=== PATIENT | male | born 1970 | race Caucasian/White ===

== ENCOUNTER 2024-02-07 16:30 | Emergency (ER) | payer OTHER, SELFPAY ==
--- NOTE | 2024-02-07 16:38 | EXP.UTC ---
Discharge Plan Disposition Patient Disposition: Home, Self-Care Condition: Good Prescriptions Prescriptions: New amoxicillin-pot clavulanate 875-125 mg Tablet 1 tab PO Q12H Qty: 20 0RF ketorolac 10 mg tablet 10 mg PO Q8H PRN (Reason: pain) 5 Days Qty: 20 0RF Rx Instructions: IM injection 02/07/24 1710 Referrals Follow up/Referrals: Provider,Referral, MD [Primary Care Provider] - See instructions Clinical Impressions Clinical Impression: Pain, dental Instructions Patient Instructions: DI for Dental Pain Discharge ED Provider: Zahra Owens [facility] [place] HPI General Stated complaint: oral/tooth pain Time Seen by Provider: 02/07/24 17:05 History of Present Illness Provider Complaint: Dental pain X 2 days. Broke tooth off left lower jaw. Has dentist appt Saturday but she suggested he get antibiotics here. Onset (ago): day(s) (2) Location: mouth Relieving factors: none Exacerbating factors: none Associated symptoms: denies other symptoms Treatments prior to arrival: none Related Data Previous Rx's Medication Instructions Recorded amoxicillin 875 mg-potassium 1 tab PO Q12H #20 tabs 02/07/24 clavulanate 125 mg tablet ketorolac 10 mg tablet 10 mg PO Q8H PRN pain 5 days #20 02/07/24 tabs Allergies Allergy/AdvReac Type Severity Reaction Status Date / Time No Known Allergies Allergy Verified 02/07/24 16:56 [facility] Disclaimer: The information contained in this section may have been updated after the patient was seen, as this information can be updated by other users. Medical History (Updated 02/07/24 @ 17:10 by JO ANN Head) No significant past medical history Social History Smoking Status: Current every day smoker alcohol intake: never current occupational status: employed Travel in the last 8 weeks: None ROS Obtained: Yes All systems reviewed & no additional complaints except as documented ENT Ears, Nose, Mouth, and Throat: Reports dental pain Physical Exam General General appearance: alert and in no apparent distress Head Head exam: atraumatic, normocephalic and normal inspection ENT ENT exam: Present normal exam, normal oropharynx, mucous membranes moist, TM's normal bilaterally and normal external ear exam Expanded ENT Exam Teeth exam: Present dental caries, fractured tooth # and gingival swelling Teeth numbered Image: 1. Chest Chest inspection: Present normal inspection and symmetric chest wall rise; Absent tenderness Respiratory Respiratory exam: Present normal lung sounds bilaterally; Absent respiratory distress Cardiovascular Cardiovascular exam: Present regular rate and normal rhythm; Absent JVD Extremities Exam Extremities exam: Present normal inspection, full ROM and normal capillary refill; Absent calf tenderness Neurological Exam Neurological exam: Present alert and oriented X3 Psychiatric Psychiatric exam: Present normal affect and normal mood Skin Skin exam: Present warm, dry, intact and normal color Medical Decision Making Zohaib Inquiry Pt receiving controlled substance: No
[2024-02-07 16:50] VITALS: BP 199/133; PULSE 74; RESP 20; TEMP 36.7; O2SAT 98; BMI 31.3
[2024-02-07] MEDS: TETRACAINE/BENZOCAINE/BUTAMBEN 56 GM SPRAY TP (17:14)
[2024-02-07] MEDS: LIDOCAINE 2% VISCOUS SOL 15ML UDC 15 ML PO (17:14)
[2024-02-07] MEDS: KETOROLAC 60MG/2ML VIAL 60 MG IM (17:14)
[2024-02-07 17:18] VITALS: BP 199/133; PULSE 74; RESP 20; TEMP 36.7; O2SAT 98
== END 2024-02-07 17:24 | disposition home or self-care (01) ==
PROVIDERS: Emergency Provider Physician Assistant
DX: K08.89 Other specified disorders of teeth and supporting structures (principal); F17.210 Nicotine dependence, cigarettes, uncomplicated
CPT/HCPCS: 96372; 99204; 99212; G0463

== ENCOUNTER 2024-05-10 18:43 | Emergency (ER) | payer OTHER, SELFPAY ==
--- NOTE | 2024-05-10 18:55 | ED_ITS ---
Discharge Plan Disposition Patient Disposition: Home, Self-Care Prescriptions Prescriptions: New prednisone 20 mg tablet 40 mg PO DAILY 5 Days Qty: 10 0RF No Action amoxicillin-pot clavulanate 875-125 mg Tablet 1 tab PO Q12H Qty: 20 0RF ketorolac 10 mg tablet 10 mg PO Q8H PRN (Reason: pain) 5 Days Qty: 20 0RF Rx Instructions: IM injection 02/07/24 1710 Referrals Follow up/Referrals: Provider,Referral, MD [Primary Care Provider] - See instructions Activity Restrictions/Add. Instructions Additional Instructions/Restrictions: Call your family doctor to establish care for this visit to the emergency department and schedule follow-up within 48 hours to ensure improvement. If you have any worsening of your condition or any other concerning signs or symptoms, return to the emergency department or your primary care doctor for further evaluation. Clinical Impressions Clinical Impression: Acute viral syndrome Print Language Print Language: Japanese Discharge ED Provider: Jordon German General Adult HPI General Stated complaint: REDMOND, lauryn,SOA Time Seen by Provider: 05/10/24 18:49 History of Present Illness HPI narrative: Please note that above description of symptoms, in this electronic medical record under categorization of recalled from ER triage doctor by RN are reflective of an initial nursing assessment, however, is not reflective of my full history and physical exam that was personally taken and clarified. Consequentially, this preceding description of symptoms, which may include the patient's categorized chief complaint in the EMR, do not reflect my personal clinical impression, and the ultimate description of history of present illness and patient stated complaints should be deferred to this section of the note. Unless stated otherwise or congruent with this section of the note, additional signs, symptoms, or incongruence should be interpreted as inaccurate with my clinical impression. Related Data Previous Rx's ?Medication ?Instructions ?Recorded amoxicillin 875 mg-potassium 1 tab PO Q12H #20 tabs 02/07/24 clavulanate 125 mg tablet ketorolac 10 mg tablet 10 mg PO Q8H PRN pain 5 days #20 02/07/24 tabs prednisone 20 mg tablet 40 mg (2 x 20 mg) PO DAILY 5 days 05/10/24 #10 tabs Allergies Allergy/AdvReac Type Severity Reaction Status Date / Time No Known Allergies Allergy Verified 02/07/24 16:56 [facility] Disclaimer: The information contained in this section may have been updated after the patient was seen, as this information can be updated by other users. Medical History (Updated 05/10/24 @ 19:01 by Jordon German MD) No significant past medical history Social History (Updated 02/07/24 @ 17:10 by JO ANN Head) Smoking Status: Current every day smoker alcohol intake: never current occupational status: employed Travel in the last 8 weeks: None ROS Obtained: Yes All systems reviewed & no additional complaints except as documented Physical Exam General General appearance: alert Head Head exam: atraumatic and normocephalic Eye Eye exam: Present normal appearance, PERRL and EOMI Neck Neck exam: Present normal inspection, full ROM and trachea midline Respiratory Respiratory exam: Absent respiratory distress, wheezes, stridor, accessory muscle use or prolonged expiratory phase Cardiovascular Cardiovascular exam: Present other (Pulses equal symmetric in upper and lower extremities) Abdominal Exam Abdominal exam: Present soft; Absent distention, tenderness or pulsatile mass Extremities Exam Extremities exam: Absent edema Neurological Exam Neurological exam: Present alert, oriented X3 and CN II-XII intact; Absent motor sensory deficit Skin Skin exam: Present warm and dry; Absent diaphoresis or erythema Medical Decision Making Medical Records Medical records reviewed: Yes I reviewed the patient's medical records. Zohaib Inquiry Pt receiving controlled substance: No Zohaib was queried for this patient: No Medical Decision Narrative: This is a 54-year-old male no relevant medical history presenting with congestion. Patient states has been sick for the last 2 days. Sinus congestion, cough when laying down. Denies chest pain, shortness of breath, nausea, vomiting. States he may had been having fevers and chills, unsure, has not taken any objective measurements. States that clear rhinorrhea that is constant causing his throat to feel irritated and cough. When he coughs, nonproductive. Been around multiple sick contacts. History obtained with patient. On arrival, patient is incredibly well-appearing, no acute distress. Speaking full sentences, normotensive, nontachycardic, saturating appropriately on room air. Lungs are clear to auscultation bilaterally anterior and posterior ly. Patient is intermittently sniffling. I feel this is most likely to be COVID-19 given he has numerous sick contacts with COVID-19. Patient is adamantly declining swab at this time. I feel this is clinically appropriate. Patient states that he just wants medicine to make him feel better because he does not come to the doctor often. Decadron given here, prednisone sent to the pharmacy for acute viral syndrome. Because patient at baseline without signs or symptoms of clinical decompensation, deemed appropriate for discharge. I discussed my clinical impression with patient and answered all questions. At this time, the evidence for any other entities in the differential is insufficient to warrant any further testing or ED observation. This was explained as well. Advisory was given that persistent or worsening symptoms require further evaluation. I confirmed the understanding of this discussion. Emergency Care Tech disclaimer Much of this encounter note is an electronic backside grinder spoken language to printed text. Electronic backside grinder of the spoken language may permit errors. Although I have reviewed the note, some errors may still exist. Critical Care Critical Care Time Critical Care Time: No
[2024-05-10 19:22] VITALS: BP 161/95; PULSE 97; RESP 18; TEMP 36.7; O2SAT 98
== END 2024-05-10 19:24 | disposition home or self-care (01) ==
PROVIDERS: Emergency Provider Emergency Medicine
DX: R05.9 Cough, unspecified (principal); R51.9 Headache, unspecified; J06.9 Acute upper respiratory infection, unspecified; B34.9 Viral infection, unspecified
CPT/HCPCS: 99283

== ENCOUNTER 2024-09-14 19:16 | Emergency (ER) | payer BC, SELFPAY ==
[2024-09-14 19:17] VITALS: BP 152/96; PULSE 94; RESP 16; TEMP 37.6; O2SAT 98; BMI 32.3
--- NOTE | 2024-09-14 19:45 | XR_ITS ---
PROCEDURE INFORMATION: Exam: XR Chest Exam date and time: 09/14/2024 7:43 PM Age: 54 years old Clinical indication: Cough and fever and shortness of breath; Additional info: Fever, cough, chills TECHNIQUE: Imaging protocol: Radiologic exam of the chest. Views: 2 views. COMPARISON: No relevant prior studies available. FINDINGS: Lungs: Peribronchial interstitial infiltrates are present bilaterally. No airspace disease. Pleural spaces: No pleural effusions. Heart/Mediastinum: Unremarkable. No cardiomegaly. Bones/joints: Osseous structures are appropriate for age. IMPRESSION: Airways disease or infectious bronchitis. No acute airspace pneumonia.
[2024-09-14 20:00] VITALS: BP 154/96; PULSE 85; O2SAT 97
--- NOTE | 2024-09-14 20:07 | HMH.EDGENADL ---
Discharge Plan Disposition Patient Disposition: Home, Self-Care Condition: Good Prescriptions Prescriptions: New ryebmjyozigxpag-qgqvymkou-GW [Bromfed DM] 2-30-10 mg/5 mL syrup 5 ml PO Q6H PRN (Reason: cold symptoms) Qty: 118 0RF ondansetron HCl 4 mg tablet 4 mg PO Q8H PRN (Reason: nausea and vomiting) 4 Days Qty: 12 0RF No Action amoxicillin-pot clavulanate 875-125 mg Tablet 1 tab PO Q12H Qty: 20 0RF ketorolac 10 mg tablet 10 mg PO Q8H PRN (Reason: pain) 5 Days Qty: 20 0RF Rx Instructions: IM injection 02/07/24 1710 prednisone 20 mg tablet 40 mg PO DAILY 5 Days Qty: 10 0RF Referrals Follow up/Referrals: Provider,Referral, MD [Primary Care Provider] - See instructions Activity Restrictions/Add. Instructions Additional Instructions/Restrictions: You were evaluated in the emergency department today and diagnosed with the flu. Please make sure you stay hydrated. product support representative your prescriptions for Bromfed and Zofran. Bromfed is for cold symptoms and Zofran is for nausea and vomiting as needed. Take Tylenol and ibuprofen every 4-6 hours as needed for pain/fever/body aches. Return to the emergency department for new or worsening symptoms. Clinical Impressions Clinical Impression: Influenza A Stand Alone Forms Stand Alone Forms: Work/School Release Instructions Patient Instructions: DI for Influenza -- Adult Print Language Print Language: Hebrew Discharge ED Provider: Kailey Weems General Adult HPI General Chief complaint: Upper Respiratory Infection Stated complaint: Fever,REDMOND,freezing,legs hurt Time Seen by Provider: 09/14/24 19:31 Mode of Arrival: Ambulatory Source of Information: Patient Limitations: No Limitations Description of Symptoms (Recalled from ER Triage Doc. by RN): Patient complains of body aches, headache, pressure in head, and a cough since saturday. States he is not better today, so he figured he would come in. Refuses nasal swab, doesn't want to take medications doesn't believe in doctors History of Present Illness HPI narrative: This patient is a 54-year-old male who denies significant past medical history and does not follow regularly with a doctor presenting to the emergency department for evaluation with concern for fever, chills, sweats, body aches, headache, cough, and abdominal pain. He notes that this started 4 days ago. He states that the pain in his abdomen is mostly in his right upper quadrant/right flank. It is worse with coughing and is tender. He has had no nausea or vomiting and has been able to eat without significant issue. No changes in bowel movements or urinary symptoms. He took ibuprofen yesterday with some improvement but has not taken anything today. He states that he generally is apprehensive with medical care and was forced to come today Related Data Previous Rx's ?Medication ?Instructions ?Recorded amoxicillin 875 mg-potassium 1 tab PO Q12H #20 tabs 02/07/24 clavulanate 125 mg tablet ketorolac 10 mg tablet 10 mg PO Q8H PRN pain 5 days #20 02/07/24 tabs prednisone 20 mg tablet 40 mg (2 x 20 mg) PO DAILY 5 days 05/10/24 #10 tabs ewwsnvqutmixmey-wqthomolhygetlu-MX 5 ml PO Q6H PRN cold symptoms #118 09/14/24 2 mg-30 mg-10 mg/5 mL oral syrup mL (Bromfed DM) ondansetron HCl 4 mg tablet 4 mg PO Q8H PRN nausea and 09/14/24 vomiting 4 days #12 tabs Allergies Allergy/AdvReac Type Severity Reaction Status Date / Time No Known Allergies Allergy Verified 02/07/24 16:56 [facility] Disclaimer: The information contained in this section may have been updated after the patient was seen, as this information can be updated by other users. Medical History No significant past medical history Social History Smoking Status: Never smoker alcohol intake: never current occupational status: employed Travel in the last 8 weeks: None Have you lived/traveled outside [place] in past 30 days?: No Contact w/someone who lives/traveled outside [place] past 30 days?: No Exposure to someone with infectious disease in past 14 days?: No Do you have a fever (greater than 100.4 F or 38 C)?: Yes Have you tested positive for COVID-19: No Exposed to someone with COVID-19 in past 14 days?: No Do you have a sore throat?: No Do you have a cough?: No Do you have any weakness?: No Do you have any diarrhea?: No Are you experiencing any unusual bleeding?: No Do you have any muscle aches/pain?: Yes Do you have any abdominal pain?: No Are you experiencing loss of taste or smell?: No ROS Obtained: Yes All systems reviewed & no additional complaints except as documented Physical Exam General General appearance: alert and in no apparent distress Comment: Uncomfortable appearing, diaphoretic Head Head exam: atraumatic and normocephalic Eye Eye exam: Present normal appearance, PERRL and EOMI ENT ENT exam: Present normal exam, normal oropharynx, mucous membranes moist and normal external ear exam Neck Neck exam: Present normal inspection, full ROM and trachea midline; Absent tenderness Chest Chest inspection: Present normal inspection and symmetric chest wall rise; Absent tenderness Respiratory Respiratory exam: Present normal lung sounds bilaterally; Absent respiratory distress, wheezes, stridor or accessory muscle use Cardiovascular Cardiovascular exam: Present regular rate and normal rhythm Abdominal Exam Abdominal exam: Present soft and tenderness (Right upper quadrant/epigastric region); Absent distention, guarding, rebound or rigidity Extremities Exam Extremities exam: Present normal inspection, full ROM and normal capillary refill; Absent tenderness or edema Back Exam Back exam: Present normal inspection and full ROM; Absent tenderness Neurological Exam Neurological exam: Present alert, oriented X3, CN II-XII intact and normal gait; Absent motor sensory deficit Psychiatric Psychiatric exam: Present normal affect and normal mood Skin Skin exam: Present warm and dry Medical Decision Making Medical Records Medical records reviewed: Yes I reviewed the patient's medical records. Screening: Per USPSTF and CDC recommendations, given the prevalence of disease in our region, it is our hospital?s policy to screen for HIV and viral Hepatitis for all patients aged 18 and over and those with ongoing risk factors. Zohaib Inquiry Pt receiving controlled substance: No Vital Signs: 09/14/24 19:17 09/14/24 20:00 09/14/24 20:30 Temperature 99.6 F Temperature Source Oral Pulse Rate 85 70 Pulse Rate [Left Radial] 94 H Respiratory Rate 16 Blood Pressure 154/96 H 132/88 Blood Pressure [Right Arm] 152/96 H Blood Pressure Mean [Right Arm] 114 Blood Pressure Source Blood Pressure Source [Right Arm] Automatic Cuff Blood Pressure Position Blood Pressure Position [Right Arm] Supine 02 Sat by Pulse Oximetry 98 97 95 Oxygen Delivery Method Room Air 09/14/24 21:00 09/14/24 21:30 09/14/24 21:55 Temperature 97.9 F Temperature Source Oral Pulse Rate 70 66 70 Pulse Rate [Left Radial] Respiratory Rate 16 Blood Pressure 129/83 122/74 122/74 Blood Pressure [Right Arm] Blood Pressure Mean [Right Arm] Blood Pressure Source Automatic Cuff Blood Pressure Source [Right Arm] Blood Pressure Position Supine Blood Pressure Position [Right Arm] 02 Sat by Pulse Oximetry 98 98 Oxygen Delivery Method Room Air Lab Data Lab results reviewed: Yes I reviewed the patient's lab results. Lab Results 09/14/24 20:09: WBC 5.2, RBC 4.35 L, Hgb 14.2, Hct 40.7 L, MCV 93.6, MCH 32.6 H, MCHC 34.9, RDW 12.9, Plt Count 246, MPV 10.3, Neut % (Auto) 64.6, Lymph % (Auto) 18.0, Kern % (Auto) 14.1 H, Eos % (Auto) 2.3, Baso % (Auto) 0.8, Neut # (Auto) 3.4, Lymph # (Auto) 0.9, Kern # (Auto) 0.7, Eos # (Auto) 0.1, Baso # (Auto) 0.0, Sodium 132 L, Potassium 3.8, Chloride 100, Carbon Dioxide 28, Anion Gap 7.8, BUN 10, Creatinine 1.40 H, Estimated Creat Clear 78, Estimated GFR 53 L, Est GFR ( Amer) 64, Glucose 95, Calcium 8.6, Total Bilirubin 0.6, AST 47, ALT 46, Alkaline Phosphatase 64, Total Protein 7.5, Albumin 4.3, Globulin 3.2, Albumin/Globulin Ratio 1.3, Lipase 184, SARS-CoV-2 (PCR) Not detected, Influenza A Untype (PCR) Detected A, Influenza Type B (PCR) Not detected 09/14/24 20:21: Urine Color Yellow, Urine Appearance Clear, Urine pH 7.0, Ur Specific [place] 1.015, Urine Protein Trace, Urine Glucose (UA) Negative, Urine Ketones Negative, Urine Blood Negative, Urine Nitrate Negative, Urine Bilirubin Negative, Urine Urobilinogen 2.0, Ur Leukocyte Esterase Negative, Urine RBC None, Urine WBC None, Ur Squamous Epith Cells 3-5, Urine Bacteria None 09/14/24 20:09 09/14/24 20:09 Orders (Tests/Meds): ED MEDICATIONS Discontinued Medications Generic Name Dose Route Start Last Admin Trade Name Sravani PRN Reason Stop Dose Admin Acetaminophen 1,000 mg 09/14/24 19:45 09/14/24 20:13 Acetaminophen 500mg Tab PO 09/14/24 19:46 1,000 mg ONCE ONE Administration Dexamethasone Sodium Phosphate 10 mg 09/14/24 22:01 09/14/24 22:18 Dexamethasone 4mg/Ml 1ml Vial IV 09/14/24 22:02 10 mg ONCE ONE Administration Diphenhydramine HCl 25 mg 09/14/24 22:01 09/14/24 22:10 Diphenhydramine 50mg/Ml Vial IV 09/14/24 22:02 25 mg ONCE ONE Administration Lactated Ringer's 1,000 mls @ 999 mls/hr 09/14/24 19:45 09/14/24 20:13 Lactated Ringer's 1000 Ml Bag IV 09/14/24 20:45 999 mls/hr .Q1H1M ONE Administration Ibuprofen 800 mg 09/14/24 19:45 09/14/24 20:12 Ibuprofen 400 Mg Tablet PO 09/14/24 19:46 800 mg ONCE ONE Administration Metoclopramide HCl 10 mg 09/14/24 22:01 09/14/24 22:18 Metoclopramide Hcl 10mg/2ml Vial IVP 09/14/24 22:02 10 mg ONCE ONE Administration ORDERS Category Date Time Status CXR 2 view (NOT portable) [XR chest 2V] Stat Exams 09/14/24 19:45 Completed Complete Blood Count Auto Diff Stat Lab 09/14/24 20:09 Completed Comprehensive Metabolic Panel Stat Lab 09/14/24 20:09 Completed Lipase Stat Lab 09/14/24 20:09 Completed Rapid PCR Covid and Flu A/B Stat Lab 09/14/24 20:09 Completed UA [Urinalysis and Microscopic] Stat Lab 09/14/24 20:21 Completed Medical Decision Narrative: In summary, this patient is a 54-year-old male presenting to the Emergency Department for evaluation of fever, chills, headache, cough, congestion, body aches, and right upper quadrant abdominal pain is worse with cough and certain movements. Differential diagnoses considered include but are not limited to musculoskeletal strain/sprain, viral syndrome, pneumonia, sepsis, cholecystitis. Ruling out the most morbid conditions drove assessment. On exam, the patient is lying in bed uncomfortable appearing and diaphoretic. Vitals are normal on cardiac telemetry with no tachycardia, tachypnea, hypoxia. He is afebrile here. His abdominal exam is benign with some tenderness in the epigastric/right upper quadrant region. He has had no vomiting and has been tolerating oral intake without difficulty, so I do not feel that surgical intra-abdominal pathology is likely. I favor musculoskeletal strain/sprain in the setting of cough related to a viral upper respiratory infection. Workup included CBC, CMP, lipase, chest x-ray, viral swab. Patient was given a bolus of IV fluids as well as oral Tylenol and ibuprofen for symptomatic improvement. I independently interpreted chest x-ray prior to the radiologist read and noted no acute focal consolidation concerning for pneumonia. Please see their read for final interpretation. Labs were obtained that demonstrated reassuring CBC with no significant leukocytosis. Chemistry demonstrates very mild hyponatremia and very mild elevation in creatinine, likely in the setting of volume concentration related to viral upper respiratory infection. He did test positive for flu A. On reassessment, patient continues to complain of dull headache, for which she was given IV Reglan, Benadryl, dexamethasone. This did help a lot. He was feeling better and felt ready to go home. Vitals normal on reassessment on cardiac telemetry and he is well-appearing. He was given instructions for supportive management of influenza and strict return precautions. He was given prescriptions for Bromfed and Zofran to have as needed. Patient was discharged after all questions were answered with plan for close outpatient follow-up. Critical Care Critical Care Time Critical Care Time: No
[2024-09-14] MEDS: IBUPROFEN 400 MG TABLET 800 MG PO (20:12)
[2024-09-14] MEDS: LACTATED RINGERS 1000ML 1,000 ML 999 ML IV (20:13)
[2024-09-14] MEDS: ACETAMINOPHEN 500MG TAB 1000 MG PO (20:13)
[2024-09-14 20:16] LABS: Basophils % 0.8 % (0.1-2.0); Coronavirus 19, PCR Not Detected (NotDetected); Eosinophils # 0.1 K/mm3 (0.0-0.4); Eosinophils % 2.3 % (0.1-12.0); Hematocrit 40.7 % (42.0-52.0); Hemoglobin 14.2 g/dL (14.1-18.0); Influenza B, PCR Not Detected (NotDetected); Lymphocytes # 0.9 K/mm3 (0.7-4.5); Mean Corpuscular HGB Conc 34.9 g/dL (31.8-35.4); Mean Corpuscular Hemoglobin 32.6 pg (27.0-31.2); Mean Corpuscular Volume 93.6 fl (80-94); Mean Platelet Volume 10.3 fl (7.4-10.4); Monocytes # 0.7 K/mm3 (0.1-1.0); Monocytes % 14.1 % (1.7-9.3); Neutrophils # 3.4 K/mm3 (1.8-7.8); Neutrophils % 64.6 % (37.0-80.0); Platelet Count 246 K/mm3 (142-424); Red Blood Count 4.35 M/mm3 (4.60-6.20); Red Cell Distribution Width 12.9 % (11.5-17.5); White Blood Count 5.2 K/mm3 (4.8-10.8)
[2024-09-14 20:24] LABS: Microscopic, Urine URINE MICROSCOPIC (MICROSCOPIC)
[2024-09-14 20:30] VITALS: BP 132/88; PULSE 70; O2SAT 95
[2024-09-14 20:32] LABS: Albumin Level 4.3 g/dl (3.5-5.0); Chloride 100 mmol/L (98-107); Potassium 3.8 mmoL/L (3.5-5.1); Sodium 132 mmol/L (136-145)
[2024-09-14 20:35] LABS: Alanine Aminotransferase 46 U/L (12-78); Albumin/Globulin Ratio 1.3 (1.1-1.8); Alkaline Phosphatase 64 U/L (38-126); Anion Gap 7.8 mEq/L (5-15); Aspartate Amino Transferase 47 U/L (17-59); Bilirubin,Total 0.6 mg/dl (0.2-1.3); Blood Urea Nitrogen 10 mg/dl (9-20); Calcium 8.6 mg/dl (8.4-10.2); Carbon Dioxide 28 mmol/L (22.0-30.0); Creatinine Clearance Estimated 78 mL/min (50-200); Estimated Glomerular Filt Rate 53 ml/min (>60); GFR (African American) 64 ML/MIN (>60); Globulin 3.2 g/dL (1.3-3.2); Glucose 95 mg/dl (74-100); Lipase 184 U/L (23-300); Total Protein,Serum 7.5 g/dl (6.3-8.2)
[2024-09-14 20:43] LABS: Influenza A, PCR Detected (NotDetected)
[2024-09-14 20:45] LABS: Appearance,Urine CLEAR (Clear); Bilirubin,Urine Negative (Negative); Blood, Urine Negative (Negative); Color,Urine YELLOW (Yellow); Glucose,Urine (UA) Negative (Negative); Ketones,Urine Negative (Negative); Leukocyte Esterase,Urine Negative (Negative); Nitrate,Urine Negative (Negative); Protein,Urine TRACE (Negative); Specific Gravity, Urine 1.015 (1.005-1.030)
[2024-09-14 21:00] VITALS: BP 129/83; PULSE 70; O2SAT 98
[2024-09-14 21:30] VITALS: BP 122/74; PULSE 66; O2SAT 98
[2024-09-14 21:55] VITALS: BP 122/74; PULSE 70; RESP 16; TEMP 36.6; O2SAT 97
--- NOTE | 2024-09-14 21:56 | PC.NURSE ---
Patient IV removed. Catheter tip intact. Bleeding controlled.
[2024-09-14] MEDS: diphenhydrAMINE 50MG/ML VIAL 25 MG IV (22:10)
[2024-09-14] MEDS: DEXAMETHASONE 4MG/ML 1ML VIAL 10 MG IV (22:18)
[2024-09-14] MEDS: METOCLOPRAMIDE HCL 10MG/2ML VIAL 10 MG IVP (22:18)
== END 2024-09-14 22:49 | disposition home or self-care (01) ==
PROVIDERS: Emergency Provider Emergency Medicine
DX: J10.1 Influenza due to other identified influenza virus with other respiratory manifestations (principal); R50.9 Fever, unspecified; M79.10 Myalgia, unspecified site; R51.9 Headache, unspecified; R05.9 Cough, unspecified; R10.11 Right upper quadrant pain; R09.81 Nasal congestion
CPT/HCPCS: 71046; 80053; 81001; 83690; 85025; 87636; 96361; 96374; 96375; 99283; J1100; J1200; J2765; J7120